=== PATIENT | male | born 1985 | race Caucasian/White ===

== ENCOUNTER → 2017-03-28 | Outpatient (REF) | payer OTHER ==
[2017-03-28 20:14] LABS: INFLUENZA A AMPLIFICATION NEGATIVE (NEGATIVE); INFLUENZA B AMPLIFICATION NEGATIVE (NEGATIVE); RSV AMPLIFICATION NEGATIVE (NEGATIVE)
== END ==
LOC: M LAB REF 19:25
DX: J11.1 Influenza due to unidentified influenza virus with other respiratory manifestations (principal)
CPT/HCPCS: 87631

== ENCOUNTER 2019-01-15 15:13 | Emergency (ER) | payer OTHER ==
[~2019-01-15] VITALS: Ht 180.3 cm; Wt 109.1 kg
[2019-01-15 18:08] VITALS: BP 187/89
== END 2019-01-15 19:40 | disposition home or self-care (01) ==
LOC: M ED 15:13
DX: S06.0X0A Concussion without loss of consciousness, initial encounter (principal); W22.8XXA Striking against or struck by other objects, initial encounter; Y92.89 Other specified places as the place of occurrence of the external cause; Y99.0 Civilian activity done for income or pay; M25.551 Pain in right hip; G80.9 Cerebral palsy, unspecified